=== PATIENT | female | born 1930 | race Caucasian/White ===

== ENCOUNTER 2016-10-17 16:56 | Emergency (ER) | payer OTHER, BC ==
[~2016-10-17] VITALS: Ht 162.6 cm; Wt 73.1 kg
[~2016-10-17 16:56] MED LIST: AMARYL1 MG PO; ASPIR 8181 M1 PO; DIGOXIN125 MCG PO; DILTIAZEM 24HR120 MG PO; HYDROCHLOROTH12.5 M1 PO; JANUVIA100 MG PO; LEVOTHYROXINE50 MCG PO; LIPITOR80 MG PO; SPIRIVA1 INHALATI IH
[2016-10-17 20:18] VITALS: BP 131/73
== END 2016-10-17 20:18 | disposition home or self-care (01) ==
LOC: EME 16:56
DX: S40.012A Contusion of left shoulder, initial encounter (principal); S00.83XA Contusion of other part of head, initial encounter; W01.0XXA Fall on same level from slipping, tripping and stumbling without subsequent striking against object, initial encounter; Y92.008 Other place in unspecified non-institutional (private) residence as the place of occurrence of the external cause; I10 Essential (primary) hypertension; E11.9 Type 2 diabetes mellitus without complications; J44.9 Chronic obstructive pulmonary disease, unspecified; Z79.82 Long term (current) use of aspirin
CPT/HCPCS: 73030; 99281; 99284

== ENCOUNTER 2017-05-06 10:59 | Emergency (ER) | payer OTHER, BC ==
[~2017-05-06] VITALS: Ht 157.5 cm; Wt 69.0 kg
[2017-05-06 12:31] LABS: BASOPHIL COUNT 0.1 K/uL (0-0.1); EOSINOPHIL (%) 0.5 % (0-5); EOSINOPHIL COUNT 0.1 K/uL (0-0.3); IMMATURE GRANULOCYTE (%) 0.3 % (0.0-0.7); INSTRUMENT ABS NEUTROPHIL CT 6.8 K/uL; LYMPHOCYTE COUNT 2.1 K/uL (1.0-2.8); MCH 28.9 PG (29.0-34.0); MCHC 32.4 G/DL (30.0-36.0); MCV 88.9 FL (83-99); MEAN PLAT.VOLUME 9.8 uM^3 (9.5-12.4); MONOCYTE (%) 7.6 % (3-12); MONOCYTE COUNT 0.8 K/uL (0-0.8); NEUTROPHIL (%) 69.4 % (45-76); NEUTROPHIL COUNT 6.8 K/uL (1.8-6.4); PLATELET COUNT 265 K/uL (156-360); RBC DIS.WIDTH-CV 12.9 % (11.8-14.6); RBC DIS.WIDTH-SD 42.5 % (39-53); RED BLOOD COUNT 4.61 M/uL (3.80-5.20); WHITE BLOOD COUNT 9.9 K/uL (4.1-10.2)
[2017-05-06 12:40] LABS: PTT 33.9 SEC (25-37)
[2017-05-06 12:44] LABS: CHLORIDE 104 mEq/L (99-109); SODIUM 140 mEq/L (136-147)
[2017-05-06 12:45] LABS: GLUCOSE 91 mg/dL (70-99); INTER. NORMALIZED RATIO 1.1; PROTHROMBIN TIME 12.5 SEC (10.2-12.9)
[2017-05-06 12:47] LABS: ANION GAP 8 MEQ/L (2-14)
[2017-05-06 12:49] LABS: GFR ESTIMATE (CALCULATED) > 59 mL/min/
[2017-05-06 12:50] LABS: UREA NITROGEN (BUN) 8 mg/dL (9-23)
[2017-05-06 12:52] LABS: TROP-I INTERPRETATION NEGATIVE; TROPONIN-I < 0.01 ng/mL (0.0-0.30)
[2017-05-06 14:20] VITALS: BP 167/74
== END 2017-05-06 14:25 | disposition home or self-care (01) ==
LOC: EME 10:59
PROVIDERS: Emergency Medicine
DX: R60.0 Localized edema (principal); M71.22 Synovial cyst of popliteal space [Baker], left knee; J44.9 Chronic obstructive pulmonary disease, unspecified; I10 Essential (primary) hypertension; E11.9 Type 2 diabetes mellitus without complications; Z79.84 Long term (current) use of oral hypoglycemic drugs; Z79.82 Long term (current) use of aspirin; Z87.891 Personal history of nicotine dependence
CPT/HCPCS: 80048; 83880; 84484; 85025; 85610; 85730; 93971; 99281; 99284

== ENCOUNTER 2017-06-05 13:18 | Inpatient (IN) | payer OTHER, BC ==
[~2017-06-05] VITALS: Ht 162.6 cm; Wt 67.1 kg
[2017-06-05 15:09] LABS: PLATELET COUNT 259 K/uL (156-360); RBC DIS.WIDTH-CV 12.9 % (11.8-14.6); RBC DIS.WIDTH-SD 41.2 % (39-53); WHITE BLOOD COUNT 9.7 K/uL (4.1-10.2)
[2017-06-05 15:17] LABS: CHLORIDE 105 mEq/L (99-109); POTASSIUM 3.6 mEq/L (3.7-5.4); SODIUM 140 mEq/L (136-147)
[2017-06-05 15:18] LABS: MAGNESIUM 2.2 mg/dL (1.3-2.7)
[2017-06-05 15:19] LABS: GLUCOSE 114 mg/dL (70-99)
[2017-06-05 15:21] LABS: ANION GAP 9 MEQ/L (2-14)
[2017-06-05 15:23] LABS: GFR ESTIMATE (CALCULATED) > 59 mL/min/
[2017-06-05 15:24] LABS: UREA NITROGEN (BUN) 9 mg/dL (9-23)
[2017-06-05 15:48] LABS: ADD MIUA? YES; BILIRUBIN NEGATIVE; BLOOD SMALL; COLOR YELLOW ((YELLOW)); GLUCOSE (STRIP) NEGATIVE; KETONES NEGATIVE; LEUKOCYTES LARGE; NITRITE POSITIVE; PROTEIN (STRIP) NEGATIVE; SPECIFIC GRAVITY 1.011 (1.000-1.030); UROBILINOGEN 0.2 MG/DL (0.2-1.0)
[2017-06-05 15:55] LABS: BACTERIA RARE /HPF; EPITHELIAL CELLS RARE /HPF; MUCUS TRACE /LPF; RED BLOOD CELLS 0-5 /HPF (0-5); WHITE BLOOD CELLS TNTC /HPF (0-5)
[2017-06-05] MEDS ORDERED: LEXAPRO10 MG PO (17:50)
[2017-06-05] MEDS ORDERED: CALCIUM 600 +1 EAC2 PO (17:50)
[2017-06-05 18:21] VITALS: BP 147/70
[2017-06-06] VITALS (7 sets, daily range): BP systolic 117–185; BP diastolic 57–93
[2017-06-06 08:36] LABS: POINT-OF-CARE METER ID UU13113831
[2017-06-06 08:53] LABS: ANION GAP 11 MEQ/L (2-14); CHLORIDE 101 MEQ/L (99-109); GFR ESTIMATE (CALCULATED) > 59 mL/min/; POTASSIUM 3.6 MEQ/L (3.7-5.4); SAMPLE HEMOLYSIS CHECK 0; SAMPLE ICTERIC CHECK 0; SAMPLE LIPEMIA CHECK 0; SODIUM 141 MEQ/L (136-147); UREA NITROGEN (BUN) 8 mg/dL (9-23)
[2017-06-06 08:57] LABS: GLUCOSE 84 mg/dL (70-99)
[2017-06-06] MEDS ORDERED: CEFTIN250 MG PO (10:46)
[2017-06-06 13:32] LABS: POINT-OF-CARE METER ID UU13113700
[2017-06-06 17:07] LABS: POINT-OF-CARE METER ID UU13113700
[2017-06-07 03:01] VITALS: BP 147/63
[2017-06-07 07:36] LABS: POINT-OF-CARE METER ID UU13113700
[2017-06-07 08:10] VITALS: BP 146/71
[2017-06-07 11:34] LABS: POINT-OF-CARE METER ID UU13113700
[2017-06-07 12:00] VITALS: BP 138/61
[2017-06-07 16:00] VITALS: BP 175/72
[2017-06-07 21:09] VITALS: BP 165/84
[2017-06-08 03:57] VITALS: BP 155/70
[2017-06-08 07:15] VITALS: BP 155/68
[2017-06-08 08:29] LABS: POINT-OF-CARE METER ID UU14162513
[2017-06-08] MEDS ORDERED: PREDNISONE10 MG PO (11:27)
== END 2017-06-08 14:18 | disposition home health service (06) | DRG 556 ==
LOC: EME 13:18 → EDOF 16:55 → 5WEST 16:55 → EDOF 16:55 → ENRESERV 16:56 → 5WEST 17:43 → ENRESERV 06-06 15:21 → CANRESERV 06-06 15:21 → 5WEST 06-06 15:21 → ENPENDDIS 06-08 → 5WEST 06-08 14:18
PROVIDERS: Emergency Medicine; Internal Medicine
DX: R26.2 Difficulty in walking, not elsewhere classified (principal); R09.02 Hypoxemia; N39.0 Urinary tract infection, site not specified; J44.9 Chronic obstructive pulmonary disease, unspecified; E03.9 Hypothyroidism, unspecified; E78.5 Hyperlipidemia, unspecified; I10 Essential (primary) hypertension; E11.9 Type 2 diabetes mellitus without complications; G30.9 Alzheimer's disease, unspecified; F02.80 Dementia in other diseases classified elsewhere, unspecified severity, without behavioral disturbance, psychotic disturbance, mood disturbance, and anxiety; I48.91 Unspecified atrial fibrillation; Z66 Do not resuscitate; M48.06 Spinal stenosis, lumbar region; M51.36 Other intervertebral disc degeneration, lumbar region; E66.01 Morbid (severe) obesity due to excess calories; Z79.84 Long term (current) use of oral hypoglycemic drugs; Z91.19 Patient's noncompliance with other medical treatment and regimen; Z79.82 Long term (current) use of aspirin; Z87.891 Personal history of nicotine dependence; Z88.1 Allergy status to other antibiotic agents; Z68.25 Body mass index [BMI] 25.0-25.9, adult
CPT/HCPCS: 70450; 71010; 80048; 81003; 82948; 83735; 84443; 85027; 87040; 87077; 87086; 87186; 94640; 94640 76; 94799; 99202; 99281; 99285; G0378; G8978 GP CI; G8979 GP CH; G8987 GO CI; G8988 GO CH; J0696; J1650; J2405; J7040; J7050; J7512

== ENCOUNTER 2017-11-26 12:48 | Emergency (ER) | payer OTHER, BC ==
[~2017-11-26] VITALS: Ht 160 cm; Wt 63.2 kg
[~2017-11-26 12:48] MED LIST changes: +CALCIUM 600 +1 EAC2 PO; +CEFTIN250 MG PO; +LEXAPRO10 MG PO; +PREDNISONE10 MG PO
[2017-11-26 14:46] LABS: HEMATOCRIT 43.9 % (36.0-46.0); HEMOGLOBIN 14.7 G/DL (11.9-15.5); MCH 30.1 PG (29.0-34.0); MCHC 33.5 G/DL (30.0-36.0); MCV 89.8 FL (83-99); PLATELET COUNT 244 K/uL (156-360); RBC DIS.WIDTH-CV 13.9 % (11.8-14.6); RED BLOOD COUNT 4.89 M/uL (3.80-5.20); WHITE BLOOD COUNT 12.4 K/uL (4.1-10.2)
[2017-11-26 14:56] LABS: ALBUMIN 3.8 g/dL (3.2-4.8); CHLORIDE 106 mEq/L (99-109); SODIUM 142 mEq/L (136-147)
[2017-11-26 14:58] LABS: GLUCOSE 122 mg/dL (70-99)
[2017-11-26 14:59] LABS: TOTAL PROTEIN 6.2 g/dL (6.4-8.3)
[2017-11-26 15:00] LABS: TOTAL BILIRUBIN 0.6 mg/dL (0.0-1.0)
[2017-11-26 15:02] LABS: ALKALINE PHOSPHATASE 61 IU/L (3-129); CREATININE 0.7 mg/dL (0.6-1.3); GFR ESTIMATE (CALCULATED) > 59 mL/min/
[2017-11-26 15:03] LABS: UREA NITROGEN (BUN) 13 mg/dL (9-23)
[2017-11-26 15:04] LABS: AST (GOT) 16 IU/L (2-34)
[2017-11-26 15:05] LABS: ALT (GPT) 16 IU/L (3-49)
[2017-11-26 16:23] LABS: APPEARANCE SL.HAZY ((CLEAR)); BILIRUBIN NEGATIVE; BLOOD NEGATIVE; COLOR YELLOW ((YELLOW)); GLUCOSE (STRIP) NEGATIVE; KETONES NEGATIVE; LEUKOCYTES TRACE; NITRITE POSITIVE; PROTEIN (STRIP) NEGATIVE; SPECIFIC GRAVITY 1.018 (1.000-1.030); UROBILINOGEN 0.2 MG/DL (0.2-1.0)
[2017-11-26 16:28] LABS: BACTERIA RARE /HPF; EPITHELIAL CELLS NONE SEEN /HPF; MUCUS TRACE /LPF; RED BLOOD CELLS 0-5 /HPF (0-5); UCUL ADDED? YES; WHITE BLOOD CELLS 20-30 /HPF (0-5)
[2017-11-26] MEDS ORDERED: KEFLEX500 MG PO (17:27)
[2017-11-26 18:31] VITALS: BP 181/77
== END 2017-11-26 18:34 | disposition home or self-care (01) ==
LOC: EME 12:48
DX: N39.0 Urinary tract infection, site not specified (principal); R53.1 Weakness; E11.9 Type 2 diabetes mellitus without complications; Z79.84 Long term (current) use of oral hypoglycemic drugs; F03.90 Unspecified dementia, unspecified severity, without behavioral disturbance, psychotic disturbance, mood disturbance, and anxiety; J44.9 Chronic obstructive pulmonary disease, unspecified; I10 Essential (primary) hypertension; F32.9 Major depressive disorder, single episode, unspecified; F41.9 Anxiety disorder, unspecified; Z79.82 Long term (current) use of aspirin; Z87.891 Personal history of nicotine dependence; Z88.1 Allergy status to other antibiotic agents
CPT/HCPCS: 71046; 80053; 81003; 85027; 87077; 87086; 87186; 99281; 99284; J0692; J7030

== ENCOUNTER 2017-12-10 13:28 | Emergency (ER) | payer OTHER, BC ==
[~2017-12-10] VITALS: Ht 160 cm; Wt 61.8 kg
[~2017-12-10 13:28] MED LIST changes: +KEFLEX500 MG PO
[2017-12-10 15:04] LABS: BASOPHIL (%) 0.7 % (0-1); BASOPHIL COUNT 0.1 K/uL (0-0.1); EOSINOPHIL (%) 0.8 % (0-5); EOSINOPHIL COUNT 0.1 K/uL (0-0.3); HEMATOCRIT 42.6 % (36.0-46.0); HEMOGLOBIN 14.1 G/DL (11.9-15.5); IMMATURE GRANULOCYTE (%) 0.3 % (0.0-0.7); LYMPHOCYTE (%) 22.5 % (15-42); MCH 29.8 PG (29.0-34.0); MCHC 33.1 G/DL (30.0-36.0); MCV 90.1 FL (83-99); MONOCYTE (%) 6.9 % (3-12); MONOCYTE COUNT 0.6 K/uL (0-0.8); NEUTROPHIL (%) 68.8 % (45-76); PLATELET COUNT 195 K/uL (156-360); RBC DIS.WIDTH-CV 13.4 % (11.8-14.6); RBC DIS.WIDTH-SD 44.3 % (39-53); RED BLOOD COUNT 4.73 M/uL (3.80-5.20); WHITE BLOOD COUNT 8.7 K/uL (4.1-10.2)
[2017-12-10 15:13] LABS: CHLORIDE 102 mEq/L (99-109); POTASSIUM 3.4 mEq/L (3.7-5.4); SODIUM 142 mEq/L (136-147)
[2017-12-10 15:14] LABS: GLUCOSE 131 mg/dL (70-99)
[2017-12-10 15:18] LABS: CREATININE 0.8 mg/dL (0.6-1.3); GFR ESTIMATE (CALCULATED) > 59 mL/min/
[2017-12-10 15:19] LABS: UREA NITROGEN (BUN) 12 mg/dL (9-23)
[2017-12-10 15:28] LABS: APPEARANCE SL.HAZY ((CLEAR)); BILIRUBIN NEGATIVE; BLOOD NEGATIVE; COLOR YELLOW ((YELLOW)); GLUCOSE (STRIP) NEGATIVE; KETONES NEGATIVE; LEUKOCYTES MODERATE; NITRITE NEGATIVE; PROTEIN (STRIP) NEGATIVE; SPECIFIC GRAVITY 1.017 (1.000-1.030); UROBILINOGEN 0.2 MG/DL (0.2-1.0)
[2017-12-10 16:07] LABS: BACTERIA RARE /HPF; EPITHELIAL CELLS RARE /HPF; MUCUS 3+ /LPF; RED BLOOD CELLS NONE SEEN /HPF (0-5); UCUL ADDED? YES
[2017-12-10] MEDS ORDERED: BACTRIM,SEPT1 TABLET PO (16:50)
[2017-12-10 17:20] VITALS: BP 177/65
== END 2017-12-10 17:23 | disposition home or self-care (01) ==
LOC: EME 13:28
PROVIDERS: Emergency Medicine
DX: N39.0 Urinary tract infection, site not specified (principal); I10 Essential (primary) hypertension; J44.9 Chronic obstructive pulmonary disease, unspecified; E11.9 Type 2 diabetes mellitus without complications; F03.90 Unspecified dementia, unspecified severity, without behavioral disturbance, psychotic disturbance, mood disturbance, and anxiety; F41.9 Anxiety disorder, unspecified; F32.9 Major depressive disorder, single episode, unspecified; Z87.440 Personal history of urinary (tract) infections; Z87.891 Personal history of nicotine dependence; Z90.49 Acquired absence of other specified parts of digestive tract; Z79.82 Long term (current) use of aspirin; Z88.1 Allergy status to other antibiotic agents
CPT/HCPCS: 71046; 80048; 81003; 85025; 87086; 99281; 99285